=== PATIENT | male | born 1950 | race Caucasian/White ===

== ENCOUNTER → 2018-06-04 | Outpatient (CLI) | payer MEDICARE, OTHER ==
[~2018-06-04] MED LIST: ACY30T TP; ASPI-1471 PO; ASPI-715 PO; CEP500 PO; CYCL10TA29 PO; DIP25 PO; ESOM20SU2 PO; FAM20 PO; HYDR-653 PO; IBU600 PO; IBU800 PO; KET10 PO; LOR5/325 PO; MELO-207 PO; METO25TA23 PO; MULT1CAP41 PO; OMEP-218 PO; PER PO; PHENA200 PO; PRO25 PO; ROSU20TA5 PO; TAM4 PO
[2018-06-04 14:08] LABS: PLATELET COUNT, AUTOMATED 256 K/uL (150-450)
[2018-06-04 14:20] LABS: LDL CHOLESTEROL 132 mg/dl
== END ==
LOC: LAB 13:00
PROVIDERS: ATTEND Internal Medicine
DX: Z12.5 Encounter for screening for malignant neoplasm of prostate (principal); E78.5 Hyperlipidemia, unspecified; I25.10 Atherosclerotic heart disease of native coronary artery without angina pectoris; R73.09 Other abnormal glucose; I10 Essential (primary) hypertension
CPT/HCPCS: 36415; 81001; 83036; 84443; 85025; G0103; 82040; 82247; 82310; 82374; 82435; 82465; 82565; 82947; 83718; 84075; 84132; 84153; 84155; 84295; 84450; 84460; 84478; 84520

== ENCOUNTER 2018-10-25 09:26 | Observation (INO) | payer MEDICARE ==
[~2018-10-25] VITALS: Ht 182.9 cm; Wt 112.5 kg
[~2018-10-25 09:26] MED LIST changes: +ESCI10TA8 PO; +FLU180SY11 IM; +PNEU0.5D3 IM
--- NOTE | 2018-10-25 09:30 | ER Report ---
History and Physical Time Seen By MD: 09:29 HPI/ROS CHIEF COMPLAINT: Shortness breath HISTORY OF PRESENT ILLNESS: Patient is a 68-year-old male here with history of worsening dyspnea, progressive shortness breath, cough. Blood cultures, chest x- ray were ordered. Patient was hypoxic at time of evaluation not on prior supplemental oxygen. Patient is afebrile at time of evaluation with no significant extremity edema. REVIEW OF SYSTEMS: Constitutional: No fever, no chills. Eyes: No discharge. ENT: No sore throat. Cardiovascular: No chest pain, no palpitations. Respiratory: + Cough, shortness breath Gastrointestinal: No abdominal pain, no vomiting. Genitourinary: No hematuria. Musculoskeletal: No back pain. Skin: No rashes. Neurological: No headache. Allergies: Coded Allergies: lisinopril (Verified Allergy, Severe, angioedema, 10/25/18) Home Meds Active Scripts Spironolactone (SPIRONOLACTONE) 25 Mg Tablet, 25 MG PO DAILY, #14 TAB Prov:RAUDEL TAPIA MD 10/26/18 Furosemide (FUROSEMIDE) 20 Mg Tablet, 1 TAB PO DAILY, #14 TAB Prov:RAUDEL TAPIA MD 10/26/18 Metoprolol Succinate (METOPROLOL SUCCINATE) 25 Mg Tab.er.24h, 1 TAB PO QDAY, #30 TAB 11 Refills Prov:ZOILA TINOCO MD 06/16/18 Rosuvastatin Calcium (Rosuvastatin Calcium) 20 Mg Tablet, 1 TAB PO QHS, #30 TAB 11 Refills Prov:ZOILA TINOCO MD 06/16/18 Escitalopram Oxalate (ESCITALOPRAM OXALATE) 10 Mg Tablet, 10 MG PO QDAY, #30 TAB 6 Refills Prov:ZOILA TINOCO MD 06/16/18 Discontinued Scripts Meloxicam (MELOXICAM) 15 Mg Tablet, 15 MG PO QDAY PRN for pain, #30 TAB 4 Refills Prov:ZOILA TINOCO MD 06/16/18 Hx Smoking: Yes Smoking Status: Former Smoker Hx Substance Use Disorder: No Hx Alcohol Use: Yes (2 BEERS EVERY EVENING) Physical Exam General Appearance: The patient is alert, has no immediate need for airway protection and no signs of toxicity. Uncomfortable appearing Eyes: Pupils equal and round no pallor or injection. ENT, Mouth: Mucous membranes are moist. Respiratory: + Diminished breath sounds bilaterally, crackles present at bases Cardiovascular: Regular rate and rhythm. Gastrointestinal: Abdomen is soft and non tender, no masses, bowel sounds normal. Neurological: No focal neurological deficits Skin: Warm and dry, no rashes. Musculoskeletal: Neck is supple non tender. Extremities are nontender, nonswollen and have full range of motion. DIFFERENTIAL DIAGNOSIS: After history and physical exam differential diagnosis was considered for shortness of breath including but not limited to pulmonary infectious process, COPD, asthma, pulmonary embolus and congestive heart failure. Medical Decision Making Data Points Laboratory Hematology Test 10/25/18 09:36 10/25/18 10:00 Red Blood Count 5.24 M/uL (4.00-5.60) Mean Corpuscular Volume 100.5 fL (80.0-96.0) Mean Corpuscular Hemoglobin 34.2 pg (26.0-33.0) Mean Corpuscular Hemoglobin Concent 34.0 g/dL (32.0-36.0) Red Cell Distribution Width 13.1 % (11.5-14.5) Mean Platelet Volume 8.2 fL (7.2-11.1) Neutrophils (%) (Auto) 82.3 % (39.4-72.5) Lymphocytes (%) (Auto) 8.6 % (17.6-49.6) Monocytes (%) (Auto) 7.8 % (4.1-12.4) Eosinophils (%) (Auto) 0.7 % (0.4-6.7) Basophils (%) (Auto) 0.6 % (0.3-1.4) Nucleated RBC Relative Count (auto) 0.0 /100WBC Neutrophils # (Auto) 6.7 K/uL (2.0-7.4) Lymphocytes # (Auto) 0.7 K/uL (1.3-3.6) Monocytes # (Auto) 0.6 K/uL (0.3-1.0) Eosinophils # (Auto) 0.1 K/uL (0.0-0.5) Basophils # (Auto) 0.0 K/uL (0.0-0.1) Nucleated RBC Absolute Count (auto) 0.00 K/uL Prothrombin Time 13.2 seconds (12.0-14.4) Prothromb Time International Ratio 1.00 Activated Partial Thromboplast Time 29 seconds (23-35) Blood Gas Patient Temperature 97.4 DEGREES Venous Blood pH 7.36 (7.31-7.41) Venous Blood Partial Pressure CO2 36 mmHg Venous Blood Partial Pressure O2 37 mmHg Venous Blood HCO3 21 mmol/L Venous Blood Oxygen Saturation 70 % Venous Blood Base Excess -5 mmol/L Oxygen Liters/Minute Room air Troponin I < 0.012 ng/ml B-Type Natriuretic Peptide 385 pg/ml (0-100) Lactate 2.5 mmol/L (0.7-2.1) Chemistry Test 10/25/18 09:36 10/25/18 10:00 White Blood Count 8.1 k/uL (4.5-11.0) Red Blood Count 5.24 M/uL (4.00-5.60) Hemoglobin 17.9 g/dL (14.0-18.0) Hematocrit 52.7 % (42.0-52.0) Mean Corpuscular Volume 100.5 fL (80.0-96.0) Mean Corpuscular Hemoglobin 34.2 pg (26.0-33.0) Mean Corpuscular Hemoglobin Concent 34.0 g/dL (32.0-36.0) Red Cell Distribution Width 13.1 % (11.5-14.5) Platelet Count 163 K/uL (150-450) Mean Platelet Volume 8.2 fL (7.2-11.1) Neutrophils (%) (Auto) 82.3 % (39.4-72.5) Lymphocytes (%) (Auto) 8.6 % (17.6-49.6) Monocytes (%) (Auto) 7.8 % (4.1-12.4) Eosinophils (%) (Auto) 0.7 % (0.4-6.7) Basophils (%) (Auto) 0.6 % (0.3-1.4) Nucleated RBC Relative Count (auto) 0.0 /100WBC Neutrophils # (Auto) 6.7 K/uL (2.0-7.4) Lymphocytes # (Auto) 0.7 K/uL (1.3-3.6) Monocytes # (Auto) 0.6 K/uL (0.3-1.0) Eosinophils # (Auto) 0.1 K/uL (0.0-0.5) Basophils # (Auto) 0.0 K/uL (0.0-0.1) Nucleated RBC Absolute Count (auto) 0.00 K/uL Prothrombin Time 13.2 seconds (12.0-14.4) Prothromb Time International Ratio 1.00 Activated Partial Thromboplast Time 29 seconds (23-35) Blood Gas Patient Temperature 97.4 DEGREES Venous Blood pH 7.36 (7.31-7.41) Venous Blood Partial Pressure CO2 36 mmHg Venous Blood Partial Pressure O2 37 mmHg Venous Blood HCO3 21 mmol/L Venous Blood Oxygen Saturation 70 % Venous Blood Base Excess -5 mmol/L Oxygen Liters/Minute Room air Troponin I < 0.012 ng/ml B-Type Natriuretic Peptide 385 pg/ml (0-100) Lactate 2.5 mmol/L (0.7-2.1) Coagulation Test 10/25/18 09:36 Prothrombin Time 13.2 seconds Prothromb Time International Ratio 1.00 Activated Partial Thromboplast Time 29 seconds Microbiology Microbiology Date/Time Source Procedure Growth Status 10/25/18 10:00 Blood Peripheral Draw Blood Culture - Final NO GROWTH AFTER 5 DAYS IN BOTH THE AE... Complete 10/25/18 09:36 Blood Peripheral Draw Blood Culture - Final NO GROWTH AFTER 5 DAYS IN BOTH THE AE... Complete EKG/Imaging Imaging PATIENT NAME: Kvng Sparks : 1950 MR: [id number] V: [id number] EXAM DATE: ORDERING PHYSICIAN: PILO POPE TECHNOLOGIST: Location: [facility] Patient: Kvng Sparks : 1950 Visit/Account:[id number] Date of Sevice: 10/25/2018 CHEST SINGLE AP INDICATION: SOB, cough COMPARISON: 08/26/2014 FINDINGS: The heart is enlarged with increased pulmonary vascular congestion and mild pulmonary edema. Sternotomy wires are intact There is no focal infiltrate or lobar consolidation. There is no pneumothorax or pleural effusion. IMPRESSION: 1. CHF ED Course/Re-evaluation ED Course Patient is an 68-year-old male here with complaints of cough, shortness breath found to be in CHF and pulmonary edema as compared with x-ray imaging. Patient was given Lasix IV, blood cultures were initially collected, lactate was unremarkable. I discussed the patient with Dr. harkins who admitted patient for further optimization treatment in the inpatient setting. Decision to Disposition Date: Oct 25, 2018 Decision to Disposition Time: 11:00 Depart Departure Impression: Primary Impression: CHF exacerbation Condition: Condition Unchanged Disposition: Admitted from ER Referrals: ZOILA TINOCO MD (PCP) New Scripts Spironolactone (SPIRONOLACTONE) 25 Mg Tablet 25 MG PO DAILY, #14 TAB Prov: RAUDEL TAPIA MD 10/26/18 Furosemide (FUROSEMIDE) 20 Mg Tablet 1 TAB PO DAILY, #14 TAB Prov: RAUDEL TAPIA MD 10/26/18 PILO POPE DO Oct 25, 2018 09:30
[2018-10-25] MEDS ORDERED: ALBUTEROL/IPRATROPIUM 3 ML NEB NEB ONE (09:40)
[2018-10-25] MEDS ORDERED: NS(*) 0.9% 1000 ML BAG 1,000 ML IV ONE (09:40)
[2018-10-25 09:52] LABS: PLATELET COUNT, AUTOMATED 163 K/uL (150-450)
--- NOTE | 2018-10-25 10:45 | RADIOLOGY IMAGING REPORT ---
FACILITY: [facility] [place] PATIENT NAME: Kvng Sparks : 1950 MR: [id number] V: [id number] EXAM DATE: ORDERING PHYSICIAN: PILO POPE TECHNOLOGIST: Location: [facility] Patient: Kvng Sparks : 1950 Visit/Account:[id number] Date of Sevice: 10/25/2018 CHEST SINGLE AP INDICATION: SOB, cough COMPARISON: 08/26/2014 FINDINGS: The heart is enlarged with increased pulmonary vascular congestion and mild pulmonary edema. Sternot rashard wires are intact There is no focal infiltrate or lobar consolidation. There is no pneumothorax or pleural effusion. IMPRESSION: 1. CHF Report Dictated By: Tej Cifuentes at 10/25/2018 10:33 AM Report E-Signed By: Tej Cifuentes at 10/25/2018 10:41 AM [id number]
[2018-10-25] MEDS ORDERED: FUROSEMIDE 40 MG/4 ML VIAL IVP ONE (11:00)
[2018-10-25 11:41] VITALS: BP 158/94
[2018-10-25] MEDS: FUROSEMIDE 40 MG TAB PO SCH (13:28)
[2018-10-25] MEDS ORDERED: ACETAMINOPHEN 500 MG TAB PO PRN (15:25)
[2018-10-25] MEDS ORDERED: FLUSH 10 ML SYR IVP PRN (15:25)
--- NOTE | 2018-10-25 15:25 | History & Physical ---
History of Present Illness Chief Complaint shortness of breath. History of Present Illness 68M presented with acute shortness of breath. PMHx significant for HTN, CAD. Per acquaintance he has actually been slowly getting more SOB for months. Denies any fever, chills, cough, orthopnea, PND. Had CABG > 10 years ago, does not follow with cardiology any longer. Has arthritis and takes meloxicam and ibuprofen. CXR showed findings consistent with CHF. BNP elevated to 385. Admitted for IV diuresis and ECHO, likely will discharge to home and follow up with PCP tomorrow. History Problems: (1) CAD (coronary artery disease) (2) Benign hypertension Home Meds Active Scripts Meloxicam (MELOXICAM) 15 Mg Tablet, 15 MG PO QDAY PRN for pain, #30 TAB 4 Refills Prov:ZOILA TINOCO MD 06/16/18 Metoprolol Succinate (METOPROLOL SUCCINATE) 25 Mg Tab.er.24h, 1 TAB PO QDAY, #30 TAB 11 Refills Prov:ZOILA TINOCO MD 06/16/18 Rosuvastatin Calcium (Rosuvastatin Calcium) 20 Mg Tablet, 1 TAB PO QHS, #30 TAB 11 Refills Prov:ZOILA TINOCO MD 06/16/18 Escitalopram Oxalate (ESCITALOPRAM OXALATE) 10 Mg Tablet, 10 MG PO QDAY, #30 TAB 6 Refills Prov:ZOILA TINOCO MD 06/16/18 Discontinued Reported Medications Aspirin (ASPIR 81) 81 Mg Tablet.dr, 81 MG PO QDAY, TAB 01/20/17 Esomeprazole Magnesium (NEXIUM) 20 Mg Suspdr.pkt, 20 MG PO 08/26/14 Discontinued Scripts Acyclovir (ZOVIRAX) 30 Gm Oint, 15 GM TP Q4H PRN for RASH, #15 GM Prov:ZOILA TINOCO MD 09/07/17 Allergies: Coded Allergies: lisinopril (Verified Allergy, Severe, angioedema, 10/25/18) Patient History: FH: arthritis FH: cancer FH: heart disease Hx Smoking: Yes Smoking Status: Former Smoker When Quit Tobacco?: 1999 Caffeine Intake: Coffee Caffeine/Cups Per Day: 3 Hx Alcohol Use: Yes Alcohol Used: Beer, Liquor Hx Substance Use Disorder: Yes (uses occasionally) Social Drug Use: Occasional Social Drugs: Marijuana Amount Of Social Drug/s Used: 2-3x Wk Review of Systems All Systems Reviewed/Normal: Yes, Except as Noted Constitutional: No Fever, No Chills Respiratory: Shortness of Breath; No Cough, No Wheezing Gastrointestinal: No Nausea, No Vomiting Exam Vital Signs Vital Signs Date Time Temp Pulse Resp B/P (MAP) Pulse Ox O2 Delivery O2 Flow Rate FiO2 10/25/18 12:06 89 10/25/18 11:41 97.4 82 20 158/94 (115) Room Air General Appearance: Alert, Awake, No Acute Distress Neuro: No Gross deficits Neck: No Masses Cardiovascular: Normal Rhythm & Peripheral Pulses Respiratory: No Respiratory Distress GI: Abd Soft and Non-Tender Extremities: Soft and Non Tender, Warm, Pulses, Perfused, Edema (mild edema) Medical Decision Making Data Points Result Diagram: 10/25/1893510/25/18935 Assessment and Plan Problems: (1) Congestive heart failure (CHF) Status: Acute Assessment & Plan: BNP elevated, symptoms and CXR consistent with CHF. Will get echo to further elucidate. Begin diuresis with 40mg IV lasix, will continue 40mg PO beginning this afternoon. Monitor I&O and daily weight. (2) CAD (coronary artery disease) Assessment & Plan: Hx of bypass over 10 years ago, continue metoprolol, rosuvastatin. (3) Benign hypertension Assessment & Plan: Continue metoprolol, allergy to lisinopril. May need trial ARB if HFrEF confirmed. (4) Arthritis Assessment & Plan: Will use tylenol for now, holding NSAID and recommend stopping outpatient. (5) Depression Assessment & Plan: Continue escitalopram. Venous Thromboembolism Antithrombotics Is Pt On Any Antithrombotics?: Yes Exam Sepsis Risk: No Definite Risk DAY RANDY ALTAMIRANO DO Oct 25, 2018 15:25
[2018-10-25 16:14] VITALS: BP 161/94
--- NOTE | 2018-10-25 17:28 | EKG ---
FACILITY: [facility] PATIENT NAME: WINNIE BULLOCK : [id number] MR: [id number] V: [id number] EXAM DATE: ORDERING PHYSICIAN: PILO POPE TECHNOLOGIST: JERI Test Reason : SOB Blood Pressure : / mmHG Vent. Rate : 084 BPM Atrial Rate : 084 BPM P-R Int : 202 ms QRS Dur : 094 ms QT Int : 410 ms P-R-T Axes : 083 124 087 degrees QTc Int : 484 ms Sinus rhythm with occasional and consecutive premature ventricular complexes Abnormal ECG Confirmed by Fran Alvarado ([id number]) on 10/25/2018 7:00:52 PM Referred By: NIKO Confirmed By:Fran Alford
[2018-10-25 19:24] VITALS: BP 172/114
[2018-10-25] MEDS ORDERED: ONDANSETRON 4 MG/2 ML VIAL IVP PRN (20:10)
[2018-10-25] MEDS ORDERED: METOPROLOL TART 50 MG TAB PO ONE (20:30)
[2018-10-25] MEDS ORDERED: ROSUVASTATIN CALCIUM 10 MG TAB PO SCH (21:00)
[2018-10-25 23:35] VITALS: BP 144/100
[2018-10-26 04:42] VITALS: BP 151/106
[2018-10-26 06:55] VITALS: BP 172/110
[2018-10-26] MEDS ORDERED: ESCITALOPRAM OXALATE 10 MG TAB PO SCH (09:00)
[2018-10-26] MEDS ORDERED: ENOXAPARIN 40 MG/0.4ML SYR SC SCH (09:00)
[2018-10-26] MEDS ORDERED: METOPROLOL SUCC XL 25 MG TABCR PO SCH (09:00)
[2018-10-26 11:14] VITALS: BP 154/109
[2018-10-26] MEDS: FUROSEMIDE 40 MG TAB PO SCH (11:18)
[2018-10-26] MEDS ORDERED: SPIR25TA80 PO (11:59)
[2018-10-26] MEDS ORDERED: FURO-45 PO (11:59)
--- NOTE | 2018-10-26 12:13 | Hospitalist Depart ---
Discharge Summary Reason for Hosp/Final Diag: (1) Congestive heart failure (CHF) Status: Acute Hospital Course & Plan: He presented with progressive SOB. BNP elevated, symptoms and CXR consistent with CHF. Echo with an EF of 50-55% with abnormal septal motion. He was started on IV furosemide. He is feeling much better today. He can go home on oral furosemide and spironolactone. CMP/BNP on 10/29. He has been educated about diet, fluid restriction and checking weight daily. He is to follow up with his PCP in 1-2 weeks. He likely will need f/u with a [employer]. Certainly, daily meloxicam contributed. See below. (2) CAD (coronary artery disease) Hospital Course & Plan: Hx of bypass over 10 years ago, continue metoprolol, rosuvastatin. (3) Benign hypertension Hospital Course & Plan: Continue metoprolol and adding furosemide/spironolactone, as above. (4) Arthritis Hospital Course & Plan: Will use tylenol for now. He was told to stop his daily meloxicam and not to use any NSAID. He expressed understanding. (5) Depression Hospital Course & Plan: Continue escitalopram. Departure Weight (Pounds): 248 Result Diagram: 10/25/18 0936 10/26/18 05 Item Value Date Time Mean Corpuscular Volume 100.5 fL H 10/25/18 0936 Thyroid Stimulating Hormone (TSH) 1.63 uIU/ml 10/26/18 0532 B-Type Natriuretic Peptide 385 pg/ml H 10/25/18 0936 Troponin I < 0.012 ng/ml 10/25/18 0936 Lactate 2.5 mmol/L H 10/25/18 1000 Calcium Level 9.4 mg/dl 10/26/18 0532 Total Bilirubin 1.4 mg/dl H 10/26/18 0532 Aspartate Amino Transf (AST/SGOT) 51 U/L H 10/26/18 0532 Alanine Aminotransferase (ALT/SGPT) 43 U/L 10/26/18 0532 Alkaline Phosphatase 82 U/L 10/26/18 0532 Total Bilirubin 0.9 mg/dl 10/25/18 0936 Aspartate Amino Transf (AST/SGOT) 60 U/L H 10/25/18 0936 Alanine Aminotransferase (ALT/SGPT) 43 U/L 10/25/18 0936 Alkaline Phosphatase 93 U/L 10/25/18 0936 Neutrophils (%) (Auto) 82.3 % H 10/25/18 09 Lymphocytes (%) (Auto) 8.6 % L 10/25/18 0936 Monocytes (%) (Auto) 7.8 % 10/25/18 0936 Eosinophils (%) (Auto) 0.7 % 10/25/18 0936 Venous Blood pH 7.36 10/25/18 0936 Venous Blood Partial Pressure CO2 36 mmHg 10/25/18 0936 Venous Blood Partial Pressure O2 37 mmHg 10/25/18 0936 Venous Blood HCO3 21 mmol/L 10/25/18 0936 Venous Blood Oxygen Saturation 70 % 10/25/18 09 Prothromb Time International Ratio 1.00 10/25/18 09 Imaging 10/25/18 Echo - See official report. EF 50-55%. Abnormal septal motion c/w post-operative state. Sclerotic AV. 10/25/18 CXR - 1. CHF EKG Vent. Rate : 084 BPM Atrial Rate : 084 BPM P-R Int : 202 ms QRS Dur : 094 ms QT Int : 410 ms P-R-T Axes : 083 124 087 degrees QTc Int : 484 ms Sinus rhythm with occasional and consecutive premature ventricular complexes Abnormal ECG Condition: Improved Discharge: Home Discharge Instructions Home Meds Active Scripts Spironolactone (SPIRONOLACTONE) 25 Mg Tablet, 25 MG PO DAILY, #14 TAB Prov:RAUDEL TAPIA MD 10/26/18 Furosemide (FUROSEMIDE) 20 Mg Tablet, 1 TAB PO DAILY, #14 TAB Prov:RAUDEL TAPIA MD 10/26/18 Metoprolol Succinate (METOPROLOL SUCCINATE) 25 Mg Tab.er.24h, 1 TAB PO QDAY, #30 TAB 11 Refills Prov:ZOILA TINOCO MD 06/16/18 Rosuvastatin Calcium (Rosuvastatin Calcium) 20 Mg Tablet, 1 TAB PO QHS, #30 TAB 11 Refills Prov:ZOILA TINOCO MD 06/16/18 Escitalopram Oxalate (ESCITALOPRAM OXALATE) 10 Mg Tablet, 10 MG PO QDAY, #30 TAB 6 Refills Prov:ZOILA TINOCO MD 06/16/18 Discontinued Reported Medications Aspirin (ASPIR 81) 81 Mg Tablet.dr, 81 MG PO QDAY, TAB 7/18/17 Esomeprazole Magnesium (NEXIUM) 20 Mg Suspdr.pkt, 20 MG PO 08/26/14 Discontinued Scripts Meloxicam (MELOXICAM) 15 Mg Tablet, 15 MG PO QDAY PRN for pain, #30 TAB 4 Refills Prov:ZOILA TINOCO MD 06/16/18 Acyclovir (ZOVIRAX) 30 Gm Oint, 15 GM TP Q4H PRN for RASH, #15 GM Prov:ZOILA TINOCO MD 09/07/17 Diet: Fluid Restricted, No Added Salt (NORMA) Activity: As Tolerated Special Instructions: Check weight daily. Call your PCP for an increase of 5 lbs. No NSAID use until cleared by PCP. Fluid restrict to about 2 quarts of liquid a day. Follow up with your PCP in 1-2 weeks. CMP/BNP on 10/29. Copies to: ZOILA TINOCO MD ; Venous Thromboembolism Antithrombotics Is Pt On Any Antithrombotics?: Yes RAUDEL TAPIA MD Oct 26, 2018 12:13
== END 2018-10-26 12:17 | disposition home or self-care (01) ==
LOC: ER 10:18 → MED 11:18 → INTOOBSV 11:18
PROVIDERS: ADMIT Internal Medicine; ATTEND Internal Medicine
DX: I50.9 Heart failure, unspecified (principal); I25.10 Atherosclerotic heart disease of native coronary artery without angina pectoris; I10 Essential (primary) hypertension; F32.9 Major depressive disorder, single episode, unspecified; M19.90 Unspecified osteoarthritis, unspecified site
CPT/HCPCS: 36415; 71045; 82803; 83605; 83880; 84443; 84484; 85025; 85610; 85730; 87040; 93005; 93306; 94640; 96361; 96374; 99284; A9270; G0378; J1940; J2405; J7030; 82040; 82247; 82310; 82374; 82435; 82565; 82947; 84075; 84132; 84155; 84295; 84450; 84460; 84520

== ENCOUNTER → 2018-10-29 | Outpatient (CLI) | payer MEDICARE ==
[~2018-10-29] MED LIST changes: +FURO-45 PO; +SPIR25TA80 PO
[2018-10-29 09:05] LABS: PLATELET COUNT, AUTOMATED 176 K/uL (150-450)
[2018-10-29 10:40] LABS: LDL CHOLESTEROL 84 mg/dl
== END ==
LOC: LAB 08:53
PROVIDERS: ATTEND Internal Medicine
DX: R79.89 Other specified abnormal findings of blood chemistry (principal); I25.10 Atherosclerotic heart disease of native coronary artery without angina pectoris; R94.5 Abnormal results of liver function studies; E78.00 Pure hypercholesterolemia, unspecified; I10 Essential (primary) hypertension
CPT/HCPCS: 36415; 82040; 82247; 82310; 82374; 82435; 82465; 82565; 82947; 83718; 84075; 84132; 84155; 84295; 84439; 84443; 84450; 84460; 84478; 84520; 85025

== ENCOUNTER → 2018-10-29 | Outpatient (CLI) | payer MEDICARE | LOC: LAB 08:41 | PROVIDERS: ATTEND Internal Medicine | DX: I50.30 Unspecified diastolic (congestive) heart failure (principal); R94.5 Abnormal results of liver function studies | CPT/HCPCS: 36415; 83880 ==

== ENCOUNTER → 2018-11-17 | Outpatient (CLI) | payer MEDICARE, OTHER ==
[~2018-11-17] MED LIST changes: +FURO-47 PO; +POTA-23 PO; +ROSU40TA18 PO; +VAL80 PO
[2018-11-17 11:51] LABS: PLATELET COUNT, AUTOMATED 183 K/uL (150-450)
== END ==
LOC: LAB 11:36
PROVIDERS: ATTEND Internal Medicine
DX: I50.9 Heart failure, unspecified (principal); I25.10 Atherosclerotic heart disease of native coronary artery without angina pectoris; E78.5 Hyperlipidemia, unspecified
CPT/HCPCS: 36415; 82040; 82247; 82310; 82374; 82435; 82565; 82947; 83880; 84075; 84132; 84155; 84295; 84450; 84460; 84520; 85025

== ENCOUNTER → 2018-11-19 | Outpatient (CLI) | payer MEDICARE, OTHER ==
[~2018-11-19] MED LIST changes: +REGADENOSON 0.4 MG/5 ML SYR ONE
--- NOTE | 2018-11-19 15:57 | RT STRESS TEST REPORT ---
FACILITY: [facility] [place] PATIENT NAME: WINNIE BULLOCK : [id number] MR: [id number] V: [id number] EXAM DATE: ORDERING PHYSICIAN: ZOILA TINOCO TECHNOLOGIST: Eri Acquisition Time: 2018-11-19 14:47:40 Total Exercise Time: 00:01:00 Test Indications: Screening for CAD Medications: SEE NUCLEAR MED SHEET Protocol: LEXISCAN Max HR: 096 BPM 63% of Pred: 152 BPM Max BP: 138/088 mmHG Max Work Load: 1.0 METS He had no chest pain or ST changes during the test. He had intermittent, asymptomatic ventricular bi geminy before the Lexiscan administration that returned about 3 minutes after the administration. See the nuclear images for details. Confirmed by RAUDEL TAPIA ([id number]) on 11/19/2018 3:56:47 PM Referred By: Overread By: RAUDEL TAPIA
--- NOTE | 2018-11-20 11:47 | RADIOLOGY IMAGING REPORT ---
FACILITY: [facility] PATIENT NAME: Kvng Sparks : 1950 MR: [id number] V: [id number] EXAM DATE: ORDERING PHYSICIAN: ZOILA TINOCO TECHNOLOGIST: [place] [facility] [place]vng Spar[place] : 1950 Visit/Account:[id number] Date of Sevice: 11/19/2018 EXAMINATION: Single isotope SPECT imaging with regadenoson infusion and gated SPECT imaging. DATE OF EXAMINATION: 11/19/2018. DATE OF INTERPRETATION: 11/20/2018. REQUESTING PHYSICIAN: ZOILA TINOCO. INDICATION: The patient is a 68-year-old male evaluated for CAD. PROCEDURE: After informed consent the patient received an intravenous injection of 10.8 mCi of Tc-99 m sestamibi followed at an appropriate time interval by rest imaging. The patient then subsequently received an intravenous infusion of 0.4 mg of regadenoson per protocol without complication. Resting heart rate was 78 bpm with a peak heart rate of 96 bpm. Blood pressure at rest was 135 / 47 and fol lowing infusion was 138 / 88. Baseline EKG demonstrates sinus rhythm. There were no EKG changes of ischemia following infusion. Symptoms were nonspecific. The patient then received an intravenous in jection of 26.2 mCi of Tc-99m sestamibi followed by stress imaging. RAW DATA: Examination of the summed raw data revealed a fair quality study. There is evidence of mariela phragmatic attenuation. MYOCARDIAL PERFUSION: The tomographic images demonstrate abnormal myocardial perfusion. There is a l arge inferior defect that is moderate in severity at rest. This improves slightly with prone imaging but predominantly persists. There is no TID. GATED IMAGES: The gated images demonstrate decrease ejection fraction 49% with global hypokinesis. IMPRESSION: 1. Nondiagnostic Lexiscan stress ECG 2. Abnormal myocardial perfusion scan, with evidence of a large inferior infarct. This may be slight ly overestimated because of diaphragmatic attenuation. No ischemia is identified 3. Mildly decreased LV systolic function; LVEF 49%. 4. Based on the results of this exam, the patient appears to be at intermediate risk for future cardi ovascular events. Report Dictated By: Sammy Dawkins at 11/20/2018 11:40 AM Report E-Signed By: Sammy Dawkins at 11/20/2018 11:42 AM WSN:[id number]
== END ==
LOC: NUC 01:28
PROVIDERS: ATTEND Internal Medicine
DX: I50.9 Heart failure, unspecified (principal); I25.10 Atherosclerotic heart disease of native coronary artery without angina pectoris
CPT/HCPCS: 78452; 93017; A9500; J2785